=== PATIENT | female | born 1970 | race Caucasian/White ===

== ENCOUNTER → 2017-12-26 | Day surgery (SDC) | payer OTHER ==
--- NOTE | 2017-12-26 13:04 | RAD REPORT ---
EXAM DESCRIPTION: US - Breast Core BX w/US Guidance - 12/26/2017 11:37 am CLINICAL HISTORY: ICD R92.8 COMPARISON: Ultrasound December 21, 2017. FINDINGS: The patient's prior Ultrasound December 21, 2017 was reviewed. The 8 mm hypoechoic structure with ill-defined borders within the upper-outer left breast was localiz ed. The risks, benefits and alternatives were explained to the patient and informed consent obtained. Skin and subcutaneous tissues were anesthetized with lidocaine. Three vacuum assisted core biopsies of the hypoechoic area were obtained. 2 cm core specimens were ta gabi. Specimens were given to pathology. Subsequently a localizing clip was placed. The patient experienced no immediate complication. IMPRESSION: Vacuum assisted core biopsies of a hypoechoic area within the upper-outer left breast.
== END | disposition home or self-care (01) ==
LOC: RAD 10:33
PROVIDERS: ATTEND General Practice
PROC: 0HBU3ZX Excision of Left Breast, Percutaneous Approach, Diagnostic (ICD-10-PCS; principal; 2017-12-26)
DX: R92.8 Other abnormal and inconclusive findings on diagnostic imaging of breast (principal)
CPT/HCPCS: 19083; 88305